=== PATIENT | male | born 1945 | race Caucasian/White ===

== ENCOUNTER 2024-08-27 18:28 | Inpatient (IN) | payer OTHER ==
[~2024-08-27] VITALS: Ht 172.7 cm; Wt 94.6 kg
[2024-08-27] MEDS ORDERED: SIMV5TAB59 PO (18:47)
[2024-08-27] MEDS ORDERED: METO100T14 PO (18:47)
[2024-08-27] MEDS ORDERED: DIGO125T PO (18:47)
[2024-08-27] MEDS ORDERED: LEVO88TA5 PO (18:47)
[2024-08-27] MEDS ORDERED: METF-440 (18:47)
[2024-08-27] MEDS ORDERED: GLIP10TA11 PO (18:47)
[2024-08-27] MEDS ORDERED: ALBU8HFA4 (18:47)
[2024-08-27] MEDS ORDERED: ISOS30TA9 (18:47)
[2024-08-27] MEDS ORDERED: METO-356 (18:47)
[2024-08-27] MEDS ORDERED: FURO20TA4 PO (18:47)
[2024-08-27] MEDS ORDERED: PRED10TA PO (18:47)
[2024-08-27 18:50] VITALS: O2SAT 97
[2024-08-27] MEDS ORDERED: DILTIAZEM HCL 50 MG IV ONE (18:55)
[2024-08-27] MEDS: DILTIAZEM HCL 25 MG IV IV ONE (18:58)
[2024-08-27 19:05] VITALS: O2SAT 97
[2024-08-27] MEDS: BUDESONIDE 0.5 MG/2 ML NEBU NEB STA (19:05)
[2024-08-27] MEDS: IPRATROPIUM BROMIDE 0.5 MG/2.5 ML NEBU NEB ONE (19:05)
[2024-08-27 19:12] LABS: PLATELET COUNT (AUTO) 202 K/uL (152-348); RED BLOOD CELL COUNT(AUTO) 3.78 MIL/uL (4.06-5.63); RED CELL DISTRIBUTION WIDTH 19.1 % (12.1-16.2); WHITE BLOOD COUNT (AUTO) 9.3 K/uL (3.6-10.2)
[2024-08-27 19:25] LABS: ASPARTATE AMINOTRANSFERASE 60 U/L (15-37); CREATININE 1.6 mg/dL (0.6-1.3); SODIUM SERUM 138 mmol/L (136-145); TOTAL PROTEIN, SERUM 6.0 g/dL (6.4-8.2); UREA NITROGEN, BLOOD 40 mg/dL (7-18)
[2024-08-27 19:36] LABS: LACTIC ACID 4.9 mmol/L (0.4-2.0)
[2024-08-27] MEDS ORDERED: CEFEPIME HCL 1 G VIAL ONE (19:47)
[2024-08-27] MEDS: CEFEPIME HCL 2 G in IV DEXTROSE 5% 50 ML IV ONE (20:01)
[2024-08-27] MEDS: INSULIN REGULAR, HUMAN 1000 UNIT/10 ML VIAL IV ONE (20:10)
[2024-08-27 21:29] LABS: FLOW, VBG 5.00 L/min (0.00-30.00); FRACTIONATED INSPIRED OXYGEN-V 40.0 %; SITE, VBG LEFT RADIAL; VBG AaDO2 99.1 mmHg; VBG BASE EXCESS -2.6 mmol/L (-2.0-3.0); VBG HCO3 21.4 mmol/L (22.0-29.0); VBG MetHb 0.4 % (0.5-1.5); VBG O2HB 98.7 % (0-79.0); VBG PCO2 34.6 mmHg (38.0-54.0); VBG PH 7.410 (7.320-7.430); VBG PO2 162.7 mmHg (23.0-48.0); VBG TOTAL HEMOGLOBIN 12.5 G/dL (13.5-17.5)
[2024-08-28] MEDS ORDERED: DEXTROSE 50% 50 ML DISP.SYRIN IV PRN (01:00)
[2024-08-28] MEDS ORDERED: LEVALBUTEROL HCL NEB 0.63 MG/3 ML NEBU NEB PRN (01:00)
[2024-08-28] MEDS ORDERED: ACETAMINOPHEN 325 MG TABLET PO PRN (01:00)
[2024-08-28] MEDS ORDERED: MAGNESIUM HYDROXIDE 30 ML LIQUID UDC PO PRN (01:00)
[2024-08-28] MEDS ORDERED: ONDANSETRON 4 MG/2 ML VIAL IV PRN (01:00)
[2024-08-28 01:58] VITALS: BP 110/64; TEMP 97.8; O2SAT 97
[2024-08-28 04:17] VITALS: BP 100/58; TEMP 97.2; O2SAT 96
[2024-08-28] MEDS: BLOOD SUGAR DIAGNOSTIC 1 EACH STRIP VI SCH (06:38)
[2024-08-28] MEDS: DILTIAZEM HCL 25 MG IV IV ONE (06:38)
[2024-08-28 06:45] LABS: PLATELET COUNT (AUTO) 167 K/uL (152-348); RED BLOOD CELL COUNT(AUTO) 3.57 MIL/uL (4.06-5.63); RED CELL DISTRIBUTION WIDTH 18.5 % (12.1-16.2); WHITE BLOOD COUNT (AUTO) 7.7 K/uL (3.6-10.2)
[2024-08-28 07:19] LABS: CREATININE 1.4 mg/dL (0.6-1.3); SODIUM SERUM 138 mmol/L (136-145); UREA NITROGEN, BLOOD 39 mg/dL (7-18)
[2024-08-28 07:54] VITALS: BP 100/73; TEMP 98.6; O2SAT 100
[2024-08-28] MEDS: INSULIN REGULAR, HUMAN 1000 UNIT/10 ML VIAL SQ PRN (08:38)
[2024-08-28] MEDS: FUROSEMIDE 20 MG/2 ML VIAL IV SCH (08:41)
[2024-08-28] MEDS: METOPROLOL TARTRATE 50 MG TABLET PO SCH (08:42)
[2024-08-28] MEDS: DIGOXIN 500 MCG/2 ML AMP IV ONE (08:42)
[2024-08-28] MEDS ORDERED: ISOS30TA86 PO (11:35)
[2024-08-28] MEDS ORDERED: METF-886 PO (11:38)
[2024-08-28] MEDS ORDERED: INSU100I26 SQ (11:39)
[2024-08-28] MEDS ORDERED: WARF-58 PO (11:40)
[2024-08-28] MEDS ORDERED: ALBU8HFA4 IH (11:44)
[2024-08-28] MEDS ORDERED: ASPI81TA31 PO (11:46)
[2024-08-28] MEDS ORDERED: TRELEGY 200-62.5-25 IH (11:46)
[2024-08-28] MEDS ORDERED: CHOL10005 PO (11:47)
[2024-08-28] MEDS ORDERED: CYAN100T44 PO (11:47)
[2024-08-28] MEDS ORDERED: Trelegy Ellipta IH (11:49)
[2024-08-28 11:57] VITALS: BP 119/71; TEMP 97.8; O2SAT 100
[2024-08-28 12:07] LABS: NEUTROPHILS % (MANUAL) 92 % (42-75)
[2024-08-28 12:08] LABS: LYMPHOCYTES % (MANUAL) 6 % (20-40); MONOCYTES % (MANUAL) 2 % (2-10); PLATELET ESTIMATE ADEQUATE
[2024-08-28] MEDS ORDERED: REMEDY ESSENTIAL ZINC PASTE 113 GM TOP PRN (12:30)
[2024-08-28] MEDS: DILTIAZEM HCL 60 MG TABLET PO ONE (15:06)
[2024-08-28 15:10] VITALS: BP 135/57; TEMP 97.7; O2SAT 99
[2024-08-28] MEDS ORDERED: CLOT30CR24 TOP (15:14)
[2024-08-28] MEDS ORDERED: PANT40TA2 PO (15:14)
[2024-08-28] MEDS ORDERED: LEVO75TA7 PO (15:14)
[2024-08-28] MEDS ORDERED: FURO10VI IV (15:14)
[2024-08-28] MEDS ORDERED: INSU100V28 SQ (15:14)
[2024-08-28] MEDS ORDERED: ACET325T53 PO (15:14)
[2024-08-28] MEDS ORDERED: methylPREDNISolone SOD SUCC IV (15:14)
[2024-08-28] MEDS ORDERED: Blood Sugar Diagnostic VI (15:14)
[2024-08-28] MEDS ORDERED: MAGN400O6 PO (15:14)
[2024-08-28] MEDS ORDERED: LEVA0.635 NEB (15:14)
[2024-08-28] MEDS ORDERED: DEXT50DI8 IV (15:14)
[2024-08-28] MEDS ORDERED: CLOTRIMAZOLE 1% CREAM 30 GM TUBE TOP SCH (17:00)
[2024-08-28] MEDS ORDERED: REMEDY ESSENTIAL ZINC PASTE 113 GM TOP SCH (21:00)
== END 2024-08-28 16:02 | disposition short-term general hospital (02) | DRG 308 ==
LOC: ER 18:35 → TELE3 08-28 00:25
PROVIDERS: ADMIT Nurse Practitioner Family; ATTEND Internal Medicine
DX: I48.20 Chronic atrial fibrillation, unspecified (principal); I50.33 Acute on chronic diastolic (congestive) heart failure; J96.21 Acute and chronic respiratory failure with hypoxia; N17.0 Acute kidney failure with tubular necrosis; J44.1 Chronic obstructive pulmonary disease with (acute) exacerbation; E87.20 Acidosis, unspecified; I45.2 Bifascicular block; E87.5 Hyperkalemia; N18.2 Chronic kidney disease, stage 2 (mild); R74.01 Elevation of levels of liver transaminase levels; I71.22 Aneurysm of the aortic arch, without rupture; E66.9 Obesity, unspecified; E11.22 Type 2 diabetes mellitus with diabetic chronic kidney disease; E03.9 Hypothyroidism, unspecified; D53.9 Nutritional anemia, unspecified; E05.90 Thyrotoxicosis, unspecified without thyrotoxic crisis or storm; I25.10 Atherosclerotic heart disease of native coronary artery without angina pectoris; Z99.81 Dependence on supplemental oxygen; Z95.2 Presence of prosthetic heart valve; Z86.79 Personal history of other diseases of the circulatory system; Z95.0 Presence of cardiac pacemaker; Z79.01 Long term (current) use of anticoagulants; Z68.31 Body mass index [BMI] 31.0-31.9, adult; Z79.890 Hormone replacement therapy; Z79.84 Long term (current) use of oral hypoglycemic drugs; Z79.82 Long term (current) use of aspirin; Z79.51 Long term (current) use of inhaled steroids; Z79.899 Other long term (current) drug therapy; I51.7 Cardiomegaly
CPT/HCPCS: 36415; 36600; 70030-TC; 71045; 71250; 82803; 83605; 83735; 84100; 84443; 84484; 85025; 85610; 87040; 93005; 93307; A4663; G0378; J0692; J1160; J1815; J1938; J2919; J3490; J3590